=== PATIENT | male | born 2000 | race Caucasian/White ===

== ENCOUNTER 2018-11-06 | Emergency (ER) | payer BC, SELFPAY ==
[2018-11-06] VITALS: BP 120/84; PULSE 115; RESP 18; TEMP 36.8; O2SAT 98; BMI 24.9
--- NOTE | 2018-11-06 00:10 | RAD_ITS ---
STUDY: X-RAY CHEST REASON FOR EXAM: Male, 18 years old. Shortness of breath for 3 days. TECHNIQUE: PA and lateral views of the chest. COMPARISON: Prior comparison studies are not available for review at this time. FINDINGS: The lungs are clear and expanded. There is no demonstrated pleural abnormality. Normal size heart. Normal mediastinum and yajaira. There is prominence of the pulmonary hilar arteries without peripheral pulmonary vascular congestion. Normal visualized aortic arch and descending thoracic aorta. Normal visualized thoracic spine. Normal visualized ribs, clavicles, and shoulders. There is no demonstrated abnormality of the visualized soft tissue structures of the upper abdomen. RAD/Chest PA and Lateral IMPRESSION: No radiographic evidence of acute cardiopulmonary disease. Electronically Signed: Stephanie Beckwith MD at 1:51 EDT , Service support ,
--- NOTE | 2018-11-06 00:12 | ED.VIS.GEN ---
History of Present Illness Chief Complaint: General Illness Narrative: Patient is a 18-year-old male who is been ill for about 3 days. He complains of shortness of breath, generalized malaise, fatigue, myalgias and arthralgias. He has had a nonproductive cough. He complains of mild headache and congestion. No vomiting. No diarrhea. No sick contacts. He has not checked his temperature at home no fever that he is aware of. Past Medical History - Allergies and Home Meds Allergies/Adverse Reactions: Allergies coconut Allergy (Verified 11/06/18 00:03) Shortness of breath Primary Care Physician: NOT,DEFINED [NON-STAFF] - Prior records reviewed: Yes Past Medical History: None Smoking Status: Current every day smoker Review of Systems All systems negative except as indicated General: Denies: Fever Cardiovascular: Denies: Chest pain Respiratory: Reports: Dyspnea, Cough Gastrointestinal: Denies: Abdominal pain, Nausea, Vomiting, Diarrhea Musculoskeletal: Reports: Myalgias, Arthralgias Neurological: Reports: Headache Physical Exam Vital Signs/Narrative: Vital Signs Temp Pulse Resp BP Pulse Ox 11/06/18 00:00 98.3 F 115 H 18 120/84 H 98 Inital Vital Signs reviewed: Yes General: Well nourished, Well developed Head: Normocephalic Eyes: Perrl, EOMI ENT: Moist mucous membranes, - - Oropharynx clear Neck: Supple Cardiovascular: - - Heart regular tachycardia, no murmur Respiratory: No distress, CTA bilaterally. Negative for: Rales, Rhonchi, Wheezing Abdomen: Soft, Nontender, Nondistended Skin: Normal color Neurological: Alert Psychological: Normal affect Diagnostic/Tx/Re-eval - Medical Decision Making Impressions Chest X-Ray 11/06/18 00:10 IMPRESSION: No radiographic evidence of acute cardiopulmonary disease. Electronically Signed: Stephanie Beckwith MD at 1:51 EDT , Service support , 11/06/18 00:10 Chest PA and Lateral [RAD] Stat 11/06/18 00:20 Mucosa - Nose Influenza Types A,B Direct FA (YUNG) - Final Laboratory Results 11/06/18 11/06/18 11/06/18 00:20 00:20 00:20 WBC 12.7 H RBC 4.90 Hgb 14.8 Hct 45.1 MCV 92.0 MCH 30.2 MCHC 32.8 RDW Std Deviation 43.4 RDW Coeff of [place] 12.8 Plt Count 206 MPV 9.8 Immature Gran % (Auto) 0.400 Neut % (Auto) 80.5 H Lymph % (Auto) 11.[address] [place] % (Auto) 6.8 Eos % (Auto) 0.5 Baso % (Auto) 0.2 Absolute Neuts (auto) 10.3 H Absolute Lymphs (auto) 1.48 Nucleated RBC % 0 Sodium 137 Potassium 3.9 Chloride 103 Carbon Dioxide 27.0 Anion Gap 7 BUN 11 Creatinine 1.00 Estim Creat Clear Calc 121.67 Est GFR (MDRD) Af Amer 122 Est GFR (MDRD) Non-Af 101 BUN/Creatinine Ratio 11.0 Glucose 93 Lactic Acid 1.3 Calcium 8.6 Labs as above notable for white count of 12.7 otherwise normal. Lactic acid normal. Chest x-ray shows no acute process. Rapid influenza was negative. Patient's presentation is most consistent with a viral syndrome. He was treated with IV fluids here. He is resting comfortably on reevaluation. He was advised on supportive care and discharged home. ED Disposition - Plan for ED Patient: Disposition: Home or Assisted Living Diagnosis: Viral syndrome Instructions: VIRAL SYNDROME (Adult) Referrals: NOT,DEFINED [NON-STAFF] -
[2018-11-06] MEDS: Ketorolac 30 MG/ML Syringe IV (00:20)
[2018-11-06] MEDS: 0.9% Normal Saline 1,000 ML 999 ML IV (00:21)
[2018-11-06 00:27] LABS: Absolute Lymphocyte Count 1.48 X10^3/uL (0.83-4.51); Absolute Neutrophil Count 10.3 X10^3/uL (2.0-7.7); Basophil# 0.02 X10^3/uL; Basophil% 0.2 % (0-1); Eosinophil# 0.06 X10^3/uL; Eosinophils% 0.5 % (0-5); Hematocrit 45.1 % (40-54); Hemoglobin 14.8 g/dL (13.0-16.5); Lymphocyte # 1.48 X10^3/ul (4.0); Lymphocyte % 11.6 % (19-41); Mean Corp Hgb Conc 32.8 g/dL (32-36); Mean Corpuscular Hgb 30.2 pg (27.0-32.0); Mean Platelet Vol. 9.8 fl (6.2-12.0); Monocyte# 0.86 X10^3/uL; Monocyte% 6.8 % (0-10); NRBC Flagged by Analyzer 0 % (0-5); Neutrophil # 10.27 X10^3/uL (2.7-7.7); Neutrophil % 80.5 % (47-70); Platelet Count 206 K/mm3 (150-450); RBC Distribution Width CV 12.8 % (11.6-14.6); RBC Distribution Width SD 43.4 fl (35.1-43.9); White Blood Count 12.7 K/mm3 (4.4-11.0)
[2018-11-06 00:40] LABS: Anion Gap 7 (5-15); BUN 11 mg/dL (7-18); Calcium,Total 8.6 mg/dL (8.5-10.1); Chloride 103 mmol/L (98-107); EST Glomerular Filtration Rate 101 mL/min (>60); Est Glom Filt Rate - Afr Amer 122 mL/min (>60); Estimated Creatinine Clearance 121.67 ml/min; Glucose 93 mg/dL (74-106); Potassium 3.9 mmol/L (3.5-5.1); Sodium Level 137 mmol/L (136-145)
[2018-11-06 00:49] LABS: Lactic Acid 1.3 mmol/L (0.4-2.0)
[2018-11-06 02:04] VITALS: BP 120/67; PULSE 90; RESP 16; O2SAT 99
== END 2018-11-06 02:05 | disposition home or self-care (01) ==
PROVIDERS: Emergency Provider Emergency Medicine
DX: B34.9 Viral infection, unspecified (principal); F17.200 Nicotine dependence, unspecified, uncomplicated
CPT/HCPCS: 71046; 80048; 83605; 85025; 87804; 96361; 96374; 99283; J7030; A4216

== ENCOUNTER 2018-11-08 17:25 | Emergency (ER) | payer BC, SELFPAY ==
[2018-11-08 17:27] VITALS: BP 142/94; PULSE 105; RESP 16; TEMP 36.8; O2SAT 100; BMI 24.6
[2018-11-08 17:29] VITALS: RESP 16
--- NOTE | 2018-11-08 17:44 | ED.VIS.GEN ---
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 He is a smoker. He denies rhinorrhea, congestion postnasal drainage. He denies sore throat. He does have hoarse voice. He denies headache, photophobia, neck pain or neck stiffness. He denies rash. He has had nausea and vomiting for the past 3 days. He is not had a eating the drink other than a sip of Sprite since this morning. He has not had solids for 3 to 4 days. He reports his stool is moist to watery. There is no blood or mucus. It is not black or maroon in color. There are no ill contacts. He states he does not feel well. He does report dry mouth, thirst and orthostatic symptoms. Prior similar symptoms: No Recent Illness/Hospitalization: No - Past Medical History (1) Volvulus neonatorum Status: Acute Past Medical History - Allergies and Home Meds Allergies/Adverse Reactions: Allergies coconut Allergy (Verified 11/08/18 17:29) Shortness of breath Primary Care Physician: Care Physician,No Primary [Primary Care Provider] - Prior records reviewed: Yes Surgical History: - - Laparotomy for volvulus and left forearm secondary to infected dog bite Smoking Status: Current every day smoker Alcohol: None Drugs: None Review of Systems General: Reports: Malaise, Weight loss. Denies: Chills, Fever, Subjective, Sweats, - Eyes: Denies: Visual changes - bilaterally, Blurred Vision - bilaterally ENT: Denies: Rhinorrhea, Sore throat Cardiovascular: Denies: Chest pain, Palpitations Respiratory: Reports: Cough, Sputum. Denies: Dyspnea, Dyspnea on exertion Gastrointestinal: Reports: Abdominal pain, Nausea, Vomiting, Diarrhea. Denies: Melena, Hematochezia Genitourinary: Reports: - - Patient reports decreased urine output. Denies: Dysuria, Hematuria, Frequency Musculoskeletal: Reports: Myalgias, Arthralgias. Denies: Neck pain, Back pain, Swelling, Extremity Pain Skin: Denies: Rash, Wounds Neurological: Reports: Weakness. Denies: Headache, Parasthesia, Numbness, -, - Endocrine: Denies: Polyuria, Polydipsia Hematologic: Denies: Easy bruising, Easy bleeding Physical Exam Vital Signs/Narrative: Vital Signs Temp Pulse Resp BP Pulse Ox 11/08/18 17:29 16 11/08/18 17:27 98.3 F 105 H 16 142/94 H 100 Inital Vital Signs reviewed: Yes General: Well nourished, Well developed, - - Appears ill. Head: Normocephalic, Atraumatic Eyes: Perrl, EOMI. Negative for: Pale conjunctiva, Scleral icterus, - ENT: No rhinorrhea, TM's clear, Dry mucous membranes Neck: Supple, Nontender, No lymphadenopathy, No JVD Cardiovascular: Regular rhythm, No murmurs, Normal S1, Normal S2, Tachycardia Respiratory: No distress, CTA bilaterally, Chest nontender Abdomen: Soft, Nondistended, No masses, Tender, Hypoactive bowel sounds. Negative for: Nontender, Normal bowel sounds, Guarding, Rebound tenderness, Hyperactive bowel sounds, Hepatomegaly, Splenomegaly Back: Nontender, Normal Inspection Extremities: Nontender, No edema Skin: No rash, No Trauma, Pallor. Negative for: Cyanosis, Diaphoresis, Jaundice Neurological: Alert, Oriented x3, Cranial nerves II-XII grossly intact, Normal Strength, Normal Sensation Psychological: Normal affect, Normal Mood Diagnostic/Tx/Re-eval Laboratory Results 11/08/18 17:38 Sodium 136 Potassium 3.7 Chloride 101 Carbon Dioxide 29.0 Anion Gap 6 BUN 10 Creatinine 0.95 Estim Creat Clear Calc 128.07 Est GFR (MDRD) Af Amer 129 Est GFR (MDRD) Non-Af 107 BUN/Creatinine Ratio 10.5 Glucose 155 H Calcium 8.6 Renal function elect lites unremarkable. Glucose is elevated 155, which is abnormal since he has not had anything to eat for 24 hours and minimal over the past 3 to 4 days. P.o. challenge was ordered at 1919. - Medical Decision Making Medically patient appears ill and dehydrated. IV was established he was see 1 L of normal saline wide open. He was administered 4 mg of Zofran for his nausea and vomiting. BMP was obtained to assess CO2/anion gap as well as renal function. Patient's history and physical findings are consistent with viral infection. Patient was reassessed at 2200. He still has no urge to urinate. He has received 2 L of normal saline and has passed p.o. challenge. 1/3 L has been ordered. Patient has had no further nausea vomiting after Reglan. Will discharge with prescription for Reglan. ED Disposition - Plan for ED Patient: Disposition: Home or Assisted Living Diagnosis: Nausea and vomiting in adult, Dehydration, moderate, Upper respiratory infection, acute, Acute hyperglycemia Instructions: VOMITING (6y-Adult), HYPERGLYCEMIA, NEW ONSET (Diabetes Suspected) Prescriptions: Metoclopramide [Reglan] 10 mg PO 4X/DAY PRN #20 tab PRN Reason: Headache Prescription Printed Referrals: Care Physician,No Primary [Primary Care Provider] - Virginia Hansen DO [STAFF PHYSICIAN] - 5-7 Days
[2018-11-08] MEDS: Ondansetron 4 MG/2 ML Vial IV (17:50)
[2018-11-08] MEDS: 0.9% Normal Saline 1,000 ML 1000 ML IV ×2 (17:50→21:27)
[2018-11-08 18:11] LABS: Anion Gap 6 (5-15); BUN 10 mg/dL (7-18); BUN/Creat Ratio 10.5 RATIO (10-20); Calcium,Total 8.6 mg/dL (8.5-10.1); Chloride 101 mmol/L (98-107); Creatinine, Serum 0.95 mg/dL (0.70-1.30); EST Glomerular Filtration Rate 107 mL/min (>60); Est Glom Filt Rate - Afr Amer 129 mL/min (>60); Estimated Creatinine Clearance 128.07 ml/min; Glucose 155 mg/dL (74-106); Potassium 3.7 mmol/L (3.5-5.1); Sodium Level 136 mmol/L (136-145)
[2018-11-08 19:26] VITALS: RESP 16
[2018-11-08 21:26] VITALS: BP 140/88; PULSE 99; RESP 16; O2SAT 96
[2018-11-08] MEDS: Metoclopramide 10 MG/2 ML Vial 5 MG IV (22:45)
[2018-11-08 23:45] VITALS: BP 133/75; PULSE 100; RESP 16; O2SAT 99
== END 2018-11-08 23:46 | disposition home or self-care (01) ==
PROVIDERS: Emergency Provider Emergency Medicine
DX: J06.9 Acute upper respiratory infection, unspecified (principal); E86.0 Dehydration; R11.2 Nausea with vomiting, unspecified; R73.9 Hyperglycemia, unspecified; F17.200 Nicotine dependence, unspecified, uncomplicated
CPT/HCPCS: 80048; 96361; 96374; 96375; 99284; J7030; A4216; J2405

== ENCOUNTER 2019-09-20 12:12 | Emergency (ER) | payer BC, MEDICAID, SELFPAY ==
[2019-09-20 12:13] VITALS: BP 126/86; PULSE 93; RESP 14; TEMP 36.8; O2SAT 97; BMI 28.6
[2019-09-20] MEDS: Azithromycin 250 MG Tablet 1000 MG PO (12:33)
--- NOTE | 2019-09-20 12:33 | ED.VIS.GEN ---
History of Present Illness Chief Complaint: Complaint Informant: Patient Timing: Continuous Current Severity: Mild Maximum Severity: Mild Narrative: The patient is a 19-year-old male who is otherwise healthy that presents due to concern for chlamydia infection. He states that his girlfriend was recently treated positive. He has not been treated yet. He denies any symptoms. He states that he was hoping he could be treated for this. He is otherwise been in his normal state of health. Prior similar symptoms: No Recent Illness/Hospitalization: No Past Medical History - Allergies and Home Meds Allergies/Adverse Reactions: Allergies coconut Allergy (Verified 09/20/19 12:15) Shortness of breath Primary Care Physician: Care Physician,No Primary [Primary Care Provider] - Prior records reviewed: Yes Past Medical History: None Surgical History: no surgical history, - - Laparotomy for volvulus and left forearm secondary to infected dog bite Smoking Status: Current every day smoker Review of Systems General: Denies: Chills, Fever, Sweats Eyes: Denies: Visual changes - bilaterally, Diplopia ENT: Denies: Rhinorrhea, Sore throat Cardiovascular: Denies: Chest pain, Palpitations Respiratory: Denies: Dyspnea, Cough, Dyspnea on exertion Gastrointestinal: Denies: Abdominal pain, Nausea, Vomiting, Diarrhea, Melena, Hematochezia Genitourinary: Denies: Dysuria, Hematuria, Frequency Musculoskeletal: Denies: Back pain, Extremity Pain Skin: Denies: Rash, Wounds Neurological: Denies: Headache, Weakness, Numbness Physical Exam Vital Signs/Narrative: Vital Signs Temp Pulse Resp BP Pulse Ox 09/20/19 12:13 98.2 F 93 14 126/86 H 97 Inital Vital Signs reviewed: Yes General: Well nourished, Well developed, No Acute Distress Head: Normocephalic, Atraumatic Eyes: Perrl, EOMI ENT: Moist mucous membranes, No rhinorrhea Neck: Supple, Nontender Cardiovascular: Regular rate, Regular rhythm, No murmurs Respiratory: No distress, CTA bilaterally, Chest nontender Abdomen: Soft, Nontender, Nondistended, Normal bowel sounds Back: Nontender, Normal Inspection Extremities: Nontender, No edema Skin: Normal color, No rash Neurological: Alert, Oriented x3, Cranial nerves II-XII grossly intact, Normal Strength, Normal Sensation Psychological: Normal affect, Normal Mood Diagnostic/Tx/Re-eval - Medical Decision Making The patient presents due to concern for STD exposure. He is absolutely no symptoms. Urine will be obtained. I will treat the patient just based on the fact that he had the symptoms and positive test of a partner. He is comfortable with this plan of care. Impression 1. STD exposure ED Disposition - Plan for ED Patient: Instructions: ED STI Male Treated Referrals: Care Physician,No Primary [Primary Care Provider] -
[2019-09-20 12:56] VITALS: BP 128/78; PULSE 76; RESP 18
[2019-09-20 15:03] LABS: Chlamydia Trachomatis by PCR POSITIVE (Negative); Neisserai gonorrhoeae by PCR Negative (Negative); Probe Check PASS; Sample Adequacy Control PASS; Specimen Processing Control PASS
== END 2019-09-20 13:07 | disposition home or self-care (01) ==
PROVIDERS: Emergency Provider Emergency Medicine
DX: Z20.2 Contact with and (suspected) exposure to infections with a predominantly sexual mode of transmission (principal); F17.200 Nicotine dependence, unspecified, uncomplicated
CPT/HCPCS: 87491; 87591; 96372; 99284

== ENCOUNTER 2021-04-16 09:29 | Emergency (ER) | payer BC, MEDICAID, SELFPAY ==
[2021-04-16 09:31] VITALS: BP 115/98; PULSE 88; RESP 17; TEMP 36.6; O2SAT 99; BMI 31.8
[2021-04-16] MEDS: Mag Hydrox/Al Hydrox/Simeth 30 ML UDC PO (10:02)
[2021-04-16 10:06] VITALS: BP 115/98; PULSE 88; RESP 18
--- NOTE | 2021-04-16 15:54 | ED.VIS.GI ---
HPI HPI - GI History of Present Illness Chief Complaint: Cough Narrative Narrative: 20-year-old male presenting with severe GERD symptoms. States has had these for about 8 months. He has been doing Pepcid most of the time. He is not on Prilosec or any other long-term medications. He states he does try to avoid some trigger foods. He has not seen a primary care provider but does state that he has health insurance. Patient states that since he has had this GERD he has a chronic cough which is mild. He does not feel short of breath. Is not having chest pain. He states that at times he does get some blood tingeing in his sputum. This is very mild. He does not have any fever, chills. No body aches. He does not have abdominal pain.Patient states he has no other significant medical history. PFSH PFSH Home Medications metoclopramide HCl 10 mg PO 4X/DAY PRN #20 tab 11/08/18 [Rx Last Taken Unknown] polyethylene glycol 3350 17 gm PO DAILY PRN 11/08/18 [History Last Taken Unknown] omeprazole 40 mg PO DAILY #30 cap 04/16/21 [Rx Last Taken Unknown] sucralfate [Carafate] 10 ml PO BID PRN #400 ml 04/16/21 [Rx Last Taken Unknown] Allergy/AdvReac Type Severity Reaction Status Date / Time coconut Allergy Shortness Verified 04/16/21 09:30 of breath Social History Smoking Status: Current every day smoker tobacco type: cigarettes ROS ROS ED Constitutional Constitutional ED: Denies chills or fever(s) ENT ENT ED: Denies rhinorrhea or sore throat Cardiovascular Cardiovascular: Denies chest pain or palpitations Respiratory/Chest Respiratory/Chest: Reports cough and other Details: Jonnie sputum ; Denies dyspnea Gastrointestinal Gastrointestinal: Denies abdominal pain, nausea or vomiting Genitourinary Genitourinary ED: Denies dysuria or hematuria Musculoskeletal Musculoskeletal: Denies arthralgias or myalgias Integumentary Denies rash Neurologic Neurologic: Denies headache(s) or paresthesias Psychiatric Psychiatric: Denies anxiety or depression EXAM Physical Exam Const Vital Signs: 04/16/21 09:31 04/16/21 10:05 04/16/21 10:06 Temperature 97.8 F Temperature Source Temporal Pulse Rate 88 88 Respiratory Rate 17 18 Respiratory Effort Normal Non-Labored Blood Pressure 115/98 H 115/98 H Blood Pressure Mean 103 Pulse Ox 99 Oxygen Delivery Method Room Air Room Air Positive well nourished General Appearance ED: NAD; Negative for pallor HEENT Reports normocephalic, head/scalp atraumatic and moist mucous membranes Eyes PERRL and EOMs intact bilaterally Neck no lymphadenopathy and supple Chest Wall inspection of chest normal and palpation of chest normal Resp normal respiratory effort and clear to auscultation bilaterally Auscultation: Negative for rales, rhonchi or wheezes Cardio regular rate and regular rhythm GI normal to inspection, nondistended, normoactive bowel sounds and non-distended Auscultation: normoactive bowel sounds Palpation: soft Narrative: Deferred Extremity normal to inspection Neuro oriented x3 and CN's II-XII intact bilaterally Sensorium / Orientation: alert Motor Exam: strength 5/5 throughout Psych mental status grossly normal Attitude: No agitated Skin no rashes or lesions noted and no wounds General Skin Exam: Negative for jaundice or pallor MDM MDM MDM Narrative Medical decision making narrative: This is a young healthy 20-year-old male presenting with extended symptoms of acid reflux. I believe his chronic cough is due to the acid reflux. Is possible that he could be getting his jonnie sputum from having irritation to his esophagus. He is not having abdominal pain. I spent a about 5 minutes discussing with him that he needed to be on a PPI. I will start him on omeprazole. He was given Carafate as needed. I do not believe he needs a chest x-ray because his lungs are clear I think he likely source is GI. I will give him follow-up with Dr. Chavez outpatient. He is amenable to this plan and discharged stable condition. Impression: 1. GERD 2. Chronic cough unchanged Lab Data Attestation: I reviewed the patient's lab results. Discharge Plan Triage Chief Complaint: Cough ED Provider: Santiago Tejada Dx/Rx/DC Orders Instructions: ED GERD (Adult) Prescriptions: New sucralfate [Carafate] 100 mg/mL suspension 10 ml PO BID PRN (Reason: acid reflux) Qty: 400 RF: 0 omeprazole 40 mg capsule,delayed release(DR/EC) 40 mg PO DAILY Qty: 30 RF: 0 No Action polyethylene glycol 3350 17 GM packet 17 gm PO DAILY PRN (Reason: Constipation) RF: 0 metoclopramide HCl 10 MG tablet 10 mg PO 4X/DAY PRN (Reason: Headache) Qty: 20 RF: 0 Primary Care Provider: Care Physician,No Primary Referrals: Friend,Daniel, DO [STAFF PHYSICIAN] - Care Physician,No Primary [Primary Care Provider] - Disposition Disposition: Home, Self Care Discharge Date/Time: 04/16/21 10:15
== END 2021-04-16 23:59 | disposition home or self-care (01) ==
LOC: ED 10:04
PROVIDERS: Emergency Provider Student in an Organized Health Care Education/Training Program; Visit Provider Student in an Organized Health Care Education/Training Program
DX: K21.9 Gastro-esophageal reflux disease without esophagitis (principal); R05.3 Chronic cough; F17.210 Nicotine dependence, cigarettes, uncomplicated; Z79.899 Other long term (current) drug therapy
CPT/HCPCS: 99283

== ENCOUNTER 2021-05-24 11:08 | Emergency (ER) | payer BC, MEDICAID, SELFPAY ==
[2021-05-24 11:10] VITALS: BP 140/89; PULSE 90; RESP 7; TEMP 35.9; O2SAT 97; BMI 30.7
--- NOTE | 2021-05-24 11:19 | CT_ITS ---
STUDY: CT ABDOMEN AND PELVIS WITH CONTRAST REASON FOR EXAM: Male, 20 years old. 2 day history of nausea and vomiting and diarrhea. Bloody stool. Pain, IBS -- IV PO Contrast RADIATION DOSAGE (If Supplied By Facility): CTDIvol = ( 13.18 ) mGy, DLP = ( 954.97 ) mGycm TECHNIQUE: Transaxial images were obtained from the dome of the diaphragm to the symphysis pubis with oral contrast. Oral and amp; IV Gastrografin and amp; 100mL Isovue-300 was administered. Sagittal and coronal images were reconstructed. Individualized dose optimization techniques were used for this CT. COMPARISON: None. FINDINGS: The visualized lung bases are unremarkable. The visualized portions of the heart are within normal limits. Normal liver. Normal gallbladder and extrahepatic biliary system. Normal spleen. Normal pancreas. Normal bilateral adrenal glands. Normal right kidney. Normal left kidney. Normal visualized stomach. Normal small intestine. There is diffuse circumferential wall thickening of the sigmoid colon down to the rectum in keeping with the colitis. This is most pronounced at the level of the rectum. The appendix is visualized and appears normal. Normal abdominal aorta. Normal inferior vena cava. Normal retroperitoneum. Distended urinary bladder. There is a small umbilical hernia containing fat. Normal osseous structures. CT/Abdomen/Pelvis WITH Contrast IMPRESSION: There is evidence of colitis involving the rectosigmoid colon more prominent at the level of the rectum. There is narrowing of the rectal lumen due to the swelling. Electronically Signed: Samuel Chiu MD at 14:05 EDT ,
--- NOTE | 2021-05-24 11:21 | EDS_ITS ---
HPI History of Present Illness Chief Complaint: Abd Pain Informant: patient Onset/Context/Timing Onset: Yesterday Context: Gradual Onset Current Severity: Mild Maximum Severity: Moderate Narrative Narrative: Patient presents secondary to GI bug. He has a history of IBS. He reports nausea, vomiting, diarrhea that started yesterday. Today he has had blood from both ends. He states he feels warm but when he checks his temperature he does not have a fever. He does report increased thirst and increased urination. PFSH PFS Medical History IBS (irritable bowel syndrome) Knowledge deficit on arm surgery Volvulus neonatorum Home Medications metoclopramide HCl 10 mg PO 4X/DAY PRN #20 tab 11/08/18 [Rx Last Taken Unknown] polyethylene glycol 3350 17 gm PO DAILY PRN 11/08/18 [History Last Taken Unknown] omeprazole 40 mg PO DAILY #30 cap 04/16/21 [Rx Last Taken Unknown] sucralfate [Carafate] 10 ml PO BID PRN #400 ml 04/16/21 [Rx Last Taken Unknown] hydrocortisone 100 mg UT BID #2520 ml 05/24/21 [Rx Last Taken Unknown] mesalamine 1,600 mg PO TID #90 tab 05/24/21 [Rx Last Taken Unknown] prednisone 10 mg PO DAILY #98 tab 05/24/21 [Rx Last Taken Unknown] Allergy/AdvReac Type Severity Reaction Status Date / Time coconut Allergy Shortness Verified 05/24/21 11:09 of breath Social History Smoking Status: Current every day smoker tobacco type: cigarettes ROS ROS ED Constitutional Constitutional ED: Denies chills or fever(s) Eyes Eyes: Denies change in vision ENT ENT ED: Denies sore throat Cardiovascular Cardiovascular: Denies chest pain Respiratory/Chest Respiratory/Chest: Denies cough or dyspnea Gastrointestinal Gastrointestinal: Reports abdominal pain, diarrhea, nausea and vomiting Genitourinary Genitourinary ED: Denies dysuria Musculoskeletal Musculoskeletal: Denies back pain Integumentary Denies rash Neurologic Neurologic: Denies headache(s) or weakness Allergic/Immunologic Allergic/Immunologic ED: Denies urticaria EXAM Physical Exam Const Vital Signs: 05/24/21 11:10 Temperature 96.7 F L Temperature Source Temporal Pulse Rate 90 Respiratory Rate 7 L Blood Pressure 140/89 H Blood Pressure Mean 106 Pulse Ox 97 Oxygen Delivery Method Room Air Positive well nourished and well developed General Appearance ED: well developed HEENT Reports moist mucous membranes Eyes PERRL and EOMs intact bilaterally Neck supple Chest Wall inspection of chest normal and palpation of chest normal Resp normal respiratory effort and clear to auscultation bilaterally Cardio regular rate and regular rhythm GI Auscultation: hypoactive bowel sounds Palpation: soft and tender other (Mild diffuse tenderness palpation. No guarding or rebound.) Extremity normal to inspection Neuro oriented x3 Sensorium / Orientation: alert Psych mental status grossly normal Skin no rashes or lesions noted MDM MDM MDM Narrative Medical decision making narrative: Patient given morphine and Zofran for pain and nausea along with IV fluids. Lab work and CT abdomen pelvis obtained. Lab Data Attestation: I reviewed the patient's lab results. Labs: Laboratory Results - last 24 hr 05/24/21 05/24/21 05/24/21 11:30 11:30 11:30 WBC 8.7 RBC 4.76 Hgb 14.8 Hct 43.5 MCV 91.4 MCH 31.1 MCHC 34.0 RDW Std Deviation 43.7 RDW Coeff of Allyn 12.9 Plt Count 216 MPV 9.9 Immature Gran % (Auto) 0.500 Neut % (Auto) 57.5 Lymph % (Auto) 32.3 Roberts % (Auto) 6.5 Eos % (Auto) 3.0 Baso % (Auto) 0.2 Absolute Neuts (auto) 5.0 Absolute Lymphs (auto) 2.80 Nucleated RBC % 0 PT 13.5 INR 1.1 APTT 28.1 Sodium 140 Potassium 4.0 Chloride 109 H Carbon Dioxide 27.0 Anion Gap 4 L BUN 16 Creatinine 0.92 Estim Creat Clear Calc 125.95 Est GFR (MDRD) Af Amer 132 Est GFR (MDRD) Non-Af 109 BUN/Creatinine Ratio 17.4 Glucose 97 Calcium 9.1 Total Bilirubin 0.40 Direct Bilirubin 0.10 AST 18 ALT 37 Alkaline Phosphatase 41 L Total Protein 7.0 Albumin 3.9 Globulin 3.1 Radiography Diagnostic Testing: Clinical Impression(s) from Imaging Studies Abdomen/Pelvis CT 05/24/21 11:19 IMPRESSION: There is evidence of colitis involving the rectosigmoid colon more prominent at the level of the rectum. There is narrowing of the rectal lumen due to the swelling. Electronically Signed: Samuel Chiu MD at 14:05 EDT , Treatment and Re-Evaluation Narrative: Lab work is unremarkable with normal white count and no left shift. Coags normal. Chemistry studies and LFTs normal. CT scan abdomen pelvis reveals evidence of colitis involving the rectosigmoid colon. There is narrowing of the rectal lumen due to swelling. I spoke with Dr. Chavez and reviewed the findings with him. He recommended hydrocortisone retention enemas, prednisone, and mesalamine. These will be written for the patient. He will be referred to Dr. Chavez for follow-up. Discharge Plan Triage Chief Complaint: Abd Pain ED Provider: Brandie Guerrero Dx/Rx/DC Orders Clinical Impression: Irritable bowel syndrome (IBS), Colitis Instructions: ED Understanding Colitis, ED Irritable Bowel Syndrome Prescriptions: New hydrocortisone 100 mg/60 mL enema 100 mg UT BID Qty: 2520 RF: 0 mesalamine 800 mg tablet,delayed release (DR/EC) 1,600 mg PO TID Qty: 90 RF: 0 prednisone 10 mg tablet 10 mg PO DAILY Qty: 98 RF: 0 No Action polyethylene glycol 3350 17 GM packet 17 gm PO DAILY PRN (Reason: Constipation) RF: 0 metoclopramide HCl 10 MG tablet 10 mg PO 4X/DAY PRN (Reason: Headache) Qty: 20 RF: 0 sucralfate [Carafate] 100 mg/mL suspension 10 ml PO BID PRN (Reason: acid reflux) Qty: 400 RF: 0 omeprazole 40 mg capsule,delayed release(DR/EC) 40 mg PO DAILY Qty: 30 RF: 0 Primary Care Provider: Care Physician,No Primary Referrals: Daniel Chavez, [STAFF PHYSICIAN] - As soon as possible Care Physician,No Primary [Primary Care Provider] - Disposition Disposition: Home, Self Care
[2021-05-24] MEDS: 0.9% Normal Saline 1,000 ML 1000 ML IV (11:33)
[2021-05-24] MEDS: Morphine 4 MG/ML Syringe IV (11:33)
[2021-05-24] MEDS: Ondansetron 4 MG/2 ML Vial IV (11:33)
[2021-05-24 11:49] LABS: International Normalized Ratio 1.1; Prothrombin Time (Protime)PT. 13.5 SECONDS (11.7-14.9)
[2021-05-24 11:50] LABS: Basophil# 0.02 X10^3/uL; Basophil% 0.2 % (0-1); Eosinophil# 0.26 X10^3/uL; Hematocrit 43.5 % (40-54); Hemoglobin 14.8 g/dL (13.0-16.5); Lymphocyte % 32.3 % (19-41); Mean Corpuscular Hgb 31.1 pg (27.0-32.0); Mean Corpuscular Volume 91.4 fL (80-94); Mean Platelet Vol. 9.9 fl (6.2-12.0); Monocyte# 0.56 X10^3/uL; Monocyte% 6.5 % (0-10); NRBC Flagged by Analyzer 0 % (0-5); Neutrophil # 4.98 X10^3/uL (2.7-7.7); Neutrophil % 57.5 % (47-70); Partial Thromboplast Time 28.1 Seconds (24.1-36.2); Platelet Count 216 K/mm3 (150-450); RBC Distribution Width CV 12.9 % (11.6-14.6); RBC Distribution Width SD 43.7 fl (35.1-43.9); Red Blood Count 4.76 M/mm3 (4.6-6.2); White Blood Count 8.7 K/mm3 (4.4-11.0)
[2021-05-24 11:58] LABS: AST(SGOT) 18 U/L (15-37); Alanine Aminotransfer ALT/SGPT 37 U/L (16-61); Albumin, Serum 3.9 g/dL (3.2-5.0); Alkaline Phosphatase 41 U/L (45-117); Anion Gap 4 (5-15); BUN 16 mg/dL (7-18); BUN/Creat Ratio 17.4 RATIO (10-20); Calcium,Total 9.1 mg/dL (8.5-10.1); Chloride 109 mmol/L (98-107); Creatinine, Serum 0.92 mg/dL (0.70-1.30); EST Glomerular Filtration Rate 109 mL/min (>60); Est Glom Filt Rate - Afr Amer 132 mL/min (>60); Estimated Creatinine Clearance 125.95 ml/min; Globulin 3.1 g/dL (2.2-4.2); Glucose 97 mg/dL (74-106); Sodium Level 140 mmol/L (136-145)
[2021-05-24 14:27] VITALS: RESP 18
== END 2021-05-24 14:32 | disposition home or self-care (01) ==
PROVIDERS: Emergency Provider Emergency Medicine; Visit Provider Emergency Medicine
DX: K58.9 Irritable bowel syndrome, unspecified (principal); F17.210 Nicotine dependence, cigarettes, uncomplicated
CPT/HCPCS: 74177; 80048; 80076; 85025; 85610; 85730; 96361; 96374; 96375; 99283; Q9967; J2405

== ENCOUNTER → 2023-09-16 | Outpatient (CLI) | payer MEDICAID, SELFPAY ==
[2023-09-16 11:53] LABS: Absolute Lymphocyte Count 2.92 X10^3/uL (0.83-4.51); Absolute Neutrophil Count 9.3 X10^3/uL (2.0-7.7); Basophil# 0.06 X10^3/uL; Basophil% 0.4 % (0-1); Eosinophil# 0.47 X10^3/uL; Eosinophils% 3.5 % (0-5); Hematocrit 42.4 % (40-54); Hemoglobin 13.9 g/dL (13.0-16.5); Lymphocyte # 2.92 X10^3/ul (0.83-4.51); Lymphocyte % 21.6 % (19-41); Mean Corp Hgb Conc 32.8 g/dL (32-36); Mean Corpuscular Volume 91.4 fL (80-94); Mean Platelet Vol. 9.7 fl (6.2-12.0); Monocyte% 5.2 % (0-10); NRBC Flagged by Analyzer 0 % (0-5); Neutrophil % 68.7 % (47-70); Platelet Count 259 K/mm3 (150-450); RBC Distribution Width CV 12.8 % (11.6-14.6); RBC Distribution Width SD 42.9 fl (35.1-43.9); Red Blood Count 4.64 M/mm3 (4.6-6.2); White Blood Count 13.5 K/mm3 (4.4-11.0)
[2023-09-16 12:10] LABS: Vitamin D,25 Hydroxy 36.8 ng/mL
[2023-09-16 12:53] LABS: ALB/GLOB Ratio 1.1 RATIO (0.9-2.4); AST(SGOT) 20 U/L (15-37); Alanine Aminotransfer ALT/SGPT 44 U/L (16-61); Albumin, Serum 3.8 g/dL (3.2-5.0); Alkaline Phosphatase 42 U/L (45-117); Anion Gap 6 (5-15); BUN 18 mg/dL (7-18); BUN/Creat Ratio 18.5 RATIO (10-20); Calcium,Total 9.5 mg/dL (8.5-10.1); Chloride 104 mmol/L (98-107); Creatinine, Serum 0.97 mg/dL (0.70-1.30); EST Glomerular Filtration Rate 100 mL/min (>60); Est Glom Filt Rate - Afr Amer 121 mL/min (>60); Globulin 3.4 g/dL (2.2-4.2); Glucose 100 mg/dL (74-106); Potassium 4.1 mmol/L (3.5-5.1); Protein, Total 7.2 g/dL (6.4-8.2); Sodium Level 137 mmol/L (136-145); Thyroid Stim Hormone (TSH) 1.38 uIU/mL (0.358-3.74)
== END | disposition home or self-care (01) ==
LOC: BIMLAB 10:08
PROVIDERS: PCP Internal Medicine; Referring Provider Internal Medicine; Visit Provider Internal Medicine
DX: F32.1 Major depressive disorder, single episode, moderate (principal); F41.9 Anxiety disorder, unspecified
CPT/HCPCS: 36415; 80053; 82306; 84443; 85025

== ENCOUNTER → 2024-02-12 | Outpatient (CLI) | payer SELFPAY ==
[2024-02-12 17:02] LABS: Bedside Glucose 126 mg/dL (74-106)
[2024-02-12 17:23] LABS: HIV - WCH Non-Reactive (Nonreactive)
[2024-02-18 01:06] LABS: Alternaria alternata <0.10 kU/L (Class 0); Anti-Centromere B Ab <0.2 AI (0.0-0.9); Anti-Chromatin <0.2 AI (0.0-0.9); Anti-Jo <0.2 AI (0.0-0.9); Anti-Scleroderma-70 AB <0.2 AI (0.0-0.9); Anti-dsDNA Ab <1 IU/mL (0-9); Aspergillus fumigatus <0.10 kU/L (Class 0); Bahia Grass <0.10 kU/L (Class 0); Beef <0.10 kU/L (Class 0); Bermuda Grass <0.10 kU/L (Class 0); Bluegrass, Kentucky <0.10 kU/L (Class 0); Cat Hair/Dander, Standard <0.10 kU/L (Class 0); Cedar, Mountain <0.10 kU/L (Class 0); Chocolate <0.10 kU/L (Class 0); Cladosporium herbarum <0.10 kU/L (Class 0); Cockroach, American 0.23 kU/L (Class 0/I); Codfish <0.10 kU/L (Class 0); Corn <0.10 kU/L (Class 0); D farinae Mite 0.94 kU/L (Class II); D pteronyssinus 1.81 kU/L (Class III); Dog Epithelia <0.10 kU/L (Class 0); Egg, Whole <0.10 kU/L (Class 0); Elm, American White <0.10 kU/L (Class 0); Hazelnut Tree <0.10 kU/L (Class 0); Hickory, White <0.10 kU/L (Class 0); Johnson Grass <0.10 kU/L (Class 0); Maple/Box Elder <0.10 kU/L (Class 0); Milk (Cow) <0.10 kU/L (Class 0); Mucor racemosus <0.10 kU/L (Class 0); Mugwort <0.10 kU/L (Class 0); Mulberry, White <0.10 kU/L (Class 0); Mussels <0.10 kU/L (Class 0); Nettle <0.10 kU/L (Class 0); Oak, White <0.10 kU/L (Class 0); Peanut <0.10 kU/L (Class 0); Penicillium chrysogen <0.10 kU/L (Class 0); Pigweed, Rough <0.10 kU/L (Class 0); Plantain, English <0.10 kU/L (Class 0); Pork <0.10 kU/L (Class 0); RNP Ab 0.4 AI (0.0-0.9); Ragweed, Short/Common <0.10 kU/L (Class 0); SJOGREN'S Anti-SS-A test < 0.2 AI (0.0-0.9); SJOGREN'S Anti-SS-B test < 0.2 AI (0.0-0.9); Salmon <0.10 kU/L (Class 0); Sheep Sorrel(Dock) <0.10 kU/L (Class 0); Shrimp 0.39 kU/L (Class I); Smith Ab <0.2 AI (0.0-0.9); Soybean <0.10 kU/L (Class 0); Stemphylium herbarum <0.10 kU/L (Class 0); Sweet Gum <0.10 kU/L (Class 0); Sycamore, American <0.10 kU/L (Class 0); Tuna <0.10 kU/L (Class 0); Wheat <0.10 kU/L (Class 0)
[2024-02-18 04:06] LABS: ACCA 41 units (0-90); ALCA 5 units (0-60); AMCA 31 units (0-100); Albumin 3.9 g/dL (2.9-4.4); Alpha-1-Globulins 0.2 g/dL (0.0-0.4); Alpha-2-Globulins 0.8 g/dL (0.4-1.0); Angiotensin Convert Enzyme 62 U/L (14-82); Ceruloplasmin 21.4 mg/dL (16.0-31.0); Cytoplasmic Ab (C-ANCA) <1:20 titer (Neg:<1:20); Endomysial Antibody IgA Negative (Negative); Gamma Globulin 0.8 g/dL (0.4-1.8); Gastrin, Serum 16 pg/mL (0-115); HEPATITIS B SURFACE AG Negative (Negative); Hep C Antibodies Non Reactive (Non Reactive); Hepatitis A IgM Antibody Negative (Negative); Hepatitis B Core AB IgM Negative (Negative); IgG, Quant 854 mg/dL (603-1613); Immunoglobulin A 128 mg/dL (90-386); Immunoglobulin E 91 IU/mL (6-495); Immunoglobulin G, Subclass 1 500 mg/dL (248-810); Immunoglobulin G, Subclass 2 200 mg/dL (130-555); Immunoglobulin G, Subclass 3 38 mg/dL (15-102); Immunoglobulin G, Subclass 4 28 mg/dL (2-96); Immunoglobulin M 70 mg/dL (20-172); PROEL- TOTAL PROTEIN 6.7 g/dL (6.0-8.5); Perinuclear Ab (P-ANCA) <1:20 titer (Neg:<1:20); gASCA 21 units (0-50); t-Transglutaminase IgA <2 U/mL (0-3)
== END | disposition home or self-care (01) ==
PROVIDERS: PCP Internal Medicine; Referring Provider Internal Medicine Gastroenterology; Visit Provider Internal Medicine Gastroenterology
DX: K21.9 Gastro-esophageal reflux disease without esophagitis (principal); K59.00 Constipation, unspecified
CPT/HCPCS: 36415; 80074; 82164; 82390; 82784; 82785; 82787; 82941; 82962; 83516; 84165; 86003; 86005; 86036; 86037; 86225; 86235; 86255; 86334; 86671; 86703